=== PATIENT | male | born 1945 | race Caucasian/White ===

== ENCOUNTER 2024-05-20 12:44 | Emergency (ER) | payer MEDICARE ==
[~2024-05-20] VITALS: Ht 172.7 cm; Wt 88.5 kg
--- NOTE | 2024-05-20 12:54 | ERN ---
ED Note History of Present Illness Stated Complaint: FLU SYMPTOMS Chief Complaint: Cough Time Seen by MD: 12:46 Dictation: PATIENT IS A 78-YEAR-OLD MALE COMING IN TODAY WITH FLU-LIKE SYMPTOMS TO INCLUDE CLEAR RUNNY NOSE NONPRODUCTIVE COUGH AND BODY ACHES HE HAS HAD FOR 3-4 DAYS. NO NAUSEA VOMITING NO DIARRHEA NO LOSS OF TASTE OR SMELL. HE HAS NOT BEEN SEEN BY A PRIMARY CARE DOCTOR. SECOND COMPLAINT IS HE HAS RIGHT KNEE PAIN THAT HE HAS HAD FOR TWO WEEKS AFTER HE TWISTED IT WHILE HE WAS VISITING HIS DAUGHTER IN ANOTHER STATE AND WALKING OUT OF THE HOUSE. HE HAS A BRACE ON AT THE PRESENT TIME NO HISTORY OF PRIOR INJURIES OR FRACTURES OR SURGERIES TO THE SAME KNEE. PATIENT HAS FULL WEIGHT- BEARING Allergies: Coded Allergies: No Known Drug Allergies (Unverified Allergy, Unknown, 05/20/24) Past Medical History RN Note Reviewed/Agreed w/PFSH: Yes Review of System Dictation CONSTITUTIONAL: NEGATIVE EXCEPT FOR HPI HEAD/FACE: NEGATIVE EXCEPT FOR HPI EENT: NEGATIVE EXCEPT FOR HPI RESPIRATORY: NEGATIVE EXCEPT FOR HPI NONPRODUCTIVE COUGH GASTROINTESTINAL/ABDOMINAL: NEGATIVE EXCEPT FOR HPI GENITOURINARY: NEGATIVE EXCEPT FOR HPI MUSCULOSKELETAL: NEGATIVE EXCEPT FOR HPI RIGHT KNEE PAIN INTEGUMENTARY: NEGATIVE EXCEPT FOR HPI NEUROLOGICAL/PSYCH: NEGATIVE EXCEPT FOR HPI HEMATOLOGIC/LYMPHATIC: NEGATIVE EXCEPT FOR HPI ALL SYSTEMS NEGATIVE, EXCEPT NOTED ABOVE. 13 POINT REVIEW OF SYSTEMS ASSESSED AND ALL NEGATIVE EXCEPT FOR ABOVE. Initial Vital Sign VS Vital Signs Date Time Temp Pulse Resp B/P (MAP) Pulse Ox O2 Delivery O2 Flow Rate FiO2 05/20/24 12:49 97.9 75 16 139/83 95 Room Air Physical Exam Dictation VITAL SIGNS REVIEWED GENERAL APPEARANCE: ALERT, ORIENTED X 3, NO ACUTE DISTRESS, WELL DEVELOPED, NOURISHED. HEAD AND FACE: NON-TRAUMATIC. EYES: PERRL, PINK CONJUNCTIVAS, EYELID NO TRAUMA, ANTERIOR CHAMBER WITH ARCUS SENILIS. EARS: PINNAS INTACT AND NO SIGNS OF TRAUMA OR ERYTHEMA EAR CANALS CLEAR AND NO DISCHARGE TM NO ERYTHEMA NOSE: NO DISCHARGE, NO BLEEDING. OROPHARYNX: MOUTH NORMAL, TONGUE PINK, PHARYNX CLEAR,NO ERYTHEMA, TONSILS NO EXUDATES, NO ABSCESSES NOTED, MUCOUS MEMBRANE MOIST NECK: SUPPLE, NON-TENDER, NO THYROMEGALY, NO MASSES, NO JVD, NO BRUITS BREAST:DEFERRED CHEST:NO TENDERNESS, NO CREPITUS, NO PARADOXICAL MOVEMENT, NO RETRACTIONS LUNGS:CLEAR, WELL-VENTILATED, SYMMETRIC, NO RALES, NO WHEEZING, NO RHONCHI, NO STRIDOR, GOOD BREATH SOUNDS BILATERALLY HEART: REGULAR RATE, REGULAR RHYTHM, NO MURMUR, NO GALLOPS VASCULAR: NO PERIPHERAL EDEMA, ABDOMEN: SOFT, POSITIVE BOWEL SOUNDS, NONDISTENDED, NO GUARDING, NONTENDER, NO REBOUND, NO MASSES NO HEPATOMEGALY, NO SPLENOMEGALY, NO GRIFFIN'S SIGN, NO HERNIAS. RECTAL: DEFERRED GENITAL: DEFERRED NEUROLOGICAL: NORMAL SPEECH, MOTOR FUNCTION INTACT, SENSORY FUNCTION INTACT MUSCULOSKELETAL: NECK NONTENDER, FULL RANGE OF MOTION, BACK NONTENDER, FULL RANGE OF MOTION, EXTREMITIES: [id number] BRACE TO RIGHT KNEE NO CREPITATION FULL WEIGHT- BEARING WITH GAIT SKIN: COLOR PINK, DRY, NO TURGOR, NO RASH, NO LACERATIONS, NO ABRASIONS, NO CONTUSIONS. LYMPHATIC: DEFERRED Results (Laboratory/Radiology) Laboratory/Radiology Laboratory Tests Test 05/20/24 13:04 05/20/24 13:24 White Blood Count 7.6 K/uL (4.8-10.8) Red Blood Count 4.77 MIL/uL (4.50-6.20) Hemoglobin 14.4 g/dL (14.0-18.0) Hematocrit 44.2 % (42-54) Mean Corpuscular Volume 92.7 fL (79-99) Mean Corpuscular Hemoglobin 30.2 pg (27.0-33.0) Mean Corpuscular Hemoglobin Concent 32.6 g/dL (32.0-36.0) Red Cell Distribution Width 14.3 % (11.0-15.5) Platelet Count 120 K/uL (130-400) L Mean Platelet Volume 10.2 fL (7.5-10.5) Immature Granulocyte % (Auto) 0.3 % (0-1) Neutrophils (%) (Auto) 69.0 % (40.0-77.0) Lymphocytes (%) (Auto) 15.9 % (21.0-51.0) L Monocytes (%) (Auto) 11.1 % (3.0-13.0) Eosinophils (%) (Auto) 3.2 % (0.0-8.0) Basophils (%) (Auto) 0.5 % (0.0-5.0) Neutrophils # (Auto) 5.3 K/uL (1.8-7.7) Lymphocytes # (Auto) 1.2 K/uL (1.0-4.8) Monocytes # (Auto) 0.8 K/uL (0.1-1.0) Eosinophils # (Auto) 0.24 K/uL (0.00-0.70) Basophils # (Auto) 0.04 K/uL (0.00-0.20) Absolute Immature Granulocyte (auto 0.02 K/uL (0-1) Nucleated Red Blood Cells 0.0 % (0.0-0.19) Sodium Level 139 mmol/L (136-145) Potassium Level 3.5 mmol/L (3.5-5.1) Chloride Level 100 mmol/L (101-111) L Carbon Dioxide Level 35 mmol/L (21-32) H Blood Urea Nitrogen 22 mg/dL (7-18) H Creatinine 1.4 mg/dL (0.5-1.3) H Glomerular Filtration Rate Calc 51 mL/min (>90) Random Glucose 105 mg/dL (70-105) Total Calcium 8.7 mg/dL (8.5-10.1) Influenza Type A Antigen Negative For Type A Influenza Type B Antigen Negative For Type B SARS-CoV-2 Antigen (Rapid) PRESUMPTIVE NEGATIVE Group A Streptococcus Rapid negative (NEGATIVE) Signed PATIENT: SANDRA LOPES MR#: [id number] : 1945 SEX: M AGE: 78 LOCATION: [facility] ORDER [id number] STATUS: [facility] REPORT#: [id number] SERVICE 1251 REASON: SOB/NONPRODUCTIVE COUGH ORDERING PHYSICIAN: RANJAN ARCINIEGA NP PROCEDURE: CXR1VW - CHEST 1VW PORTABLE CHEST RADIOGRAPH INDICATION: SOB/NONPRODUCTIVE COUGH COMPARISON: None FINDINGS: Image is somewhat underexposed, but the radiologic examination is still believed to be of reasonable diagnostic quality. Left sided single chamber pacer and continuous lead remain in customary position. Heart is enlarged. The pulmonary vascularity and jodee appear normal. Right infrahilar and left lung base linear opacities without consolidation. No significant pleural effusion noted. No pneumothorax detected. IMPRESSION: Right infrahilar and left lung base atelectasis. Cardiomegaly without pulmonary vascular congestion. INDICATION: Right knee pain after twisting injury 2 weeks ago COMPARISON: None FINDINGS: AP, crosstable lateral, and oblique views. No acute fracture or dislocation identified. No significant joint effusion is present. Mild calcific plaque along the outflow and runoff arterial gong. IMPRESSION: No evidence for fracture or dislocation. Labs Reviewed?: Yes ED Course ED Course Orders Procedure Category Date Status Time Knee 3vws Rt RAD 05/20/24 Resulted 12:51 Chest 1vw RAD 05/20/24 Resulted 12:51 Covid19 (Sars Antigen LAB 05/20/24 Complete Rapid) 12:51 Cbc With Differential LAB 05/20/24 Complete 12:51 Basic Metabolic Panel LAB 05/20/24 Complete 12:51 Acetaminophen 500mg PHA 05/20/24 Complete Tab (Tylenol 500mg T 13:00 Rapid (Group A Strep) LAB 05/20/24 Complete 12:54 Influenza Type A & B, LAB 05/20/24 Complete Rapid 12:54 Current Medications Medications (Trade) Dose Ordered Sig/Olga Route PRN Reason Start Time Stop Time Status Last Admin Dose Admin Acetaminophen (TYLenol 500MG TAB) 1,000 mg ONCE ONCE PO 05/20/24 13:00 05/20/24 13:01 DC 05/20/24 14:03 Vital Signs Date Time Temp Pulse Resp B/P (MAP) Pulse Ox O2 Delivery O2 Flow Rate FiO2 05/20/24 14:03 99.0 05/20/24 12:49 97.9 75 16 139/83 95 Room Air FOURTEEN 40 PATIENT WILL BE TREATED FOR BACTERIAL BRONCHITIS WITH ZITHROMAX FOR THE NEXT FIVE DAYS. HE WILL BE GIVEN ALBUTEROL AND IBUPROFEN TOLD TO FOLLOW UP WITH DR. RADHA VIDAL FOR HIS KNEE Medical Decision Making MDM MDM: DIFFERENTIAL DIAGNOSIS: KNEE FRACTURE/CONTUSION/SPRAIN/SARS COVID/BRONC HITIS/PNEUMONIA RATIONALE: TESTS CONSIDERED AND ORDERED SECONDARY TO SHARED DECISION MAKING INCLUDE: RADIOLOGY/LABS PREVIOUS OUTSIDE RECORDS REVIEWED: OLD ER VISITS. RISK OF COMPLICATION AND/OR MORBIDITY OR MORTALITY OF PATIENT MANAGEMENT: NONE MEDICATIONS-PER MEDICATION RECONCILIATION NEED FOR HOSPITALIZATION: PATIENT DOES NOT MEET CRITERIA FOR HOSPITALIZATION. NO NEED FOR EMERGENCY MAJOR/MINOR SURGERY: NO THERE ARE NO SOCIAL CONCERNS WITH THIS PATIENT. PRESCRIPTION DRUG MANAGEMENT IBUPROFEN/ZITHROMAX/ALBUTEROL PRESCRIPTIONS WILL INCLUDE SYMPTOMATIC CARE PATIENT'S PRIOR EXTERNAL MEDICAL RECORDS FROM OTHER ER VISITS WERE REVIEWED BY ME INDICATED. PRIOR TESTING AND RESULTS FROM PREVIOUS VISITS WERE REVIEWED. PRIOR TESTS WERE TAKEN INTO ACCOUNT WITH MEDICAL DECISION MAKING AND RESOURCE UTILIZATION, INDEPENDENT HISTORIAN/HISTORIANS WERE USED TO OBTAIN COMPLETE MEDICAL HISTORY. I INDEPENDENTLY INTERPRETED THE TEST THAT WERE PERFORMED, RESULTS WERE REVIEWED BY ME AND CONSIDERED FINDINGS ON RADIOLOGY IF ORDERED. MEDICAL MANAGEMENT AND EXAMINATION INTERPRETATION DISCUSSIONS WERE HAD BY ME WITH OTHER QUALIFIED HEALTHCARE PROFESSIONALS INDICATED FOR THE PATIENT'S CARE. DX & DISP Disposition: Discharge Departure Impression: Primary Impression: Acute bacterial bronchitis Additional Impressions: Cough, Right knee sprain Condition: Stable Scripts Azithromycin (Zithromax Tri-Elan) 500 Mg Tablet 500 MG PO DAILY for 5 Days, #5 TAB Prov: RANJAN ARCINIEGA DRY MIXER 05/20/24 Albuterol Sulfate (Ventolin Hfa/Proventil Hfa/Proair Hfa) 90 Mcg Puff 2 PUFF IH Q4H for WHEEZING, #1 INHALER 0 Refills Prov: RANJAN ARCINIEGA DRY MIXER 05/20/24 Additional Instructions: FOLLOW-UP WITH PRIMARY CARE PROVIDER IN 1 TO 2 DAYS. TAKE MEDICATIONS DIRECTED HERE IN THE EMERGENCY ROOM. OKAY TO CONTINUE HOME MEDICATIONS UNLESS OTHERWISE DISCUSSED DURING YOUR VISIT IN THE EMERGENCY ROOM TODAY. RETURN TO YOUR NEAREST EMERGENCY ROOM IF SYMPTOMS WORSEN OR IF THERE IS NO IMPROVEMENT. CALL 911 IF YOU NEED IMMEDIATE ASSISTANCE. TAKE TYLENOL OR MOTRIN [id number] NEEDED AND IF NO CONTRAINDICATIONS ARE PRESENT. INCREASE ORAL HYDRATION. A WOUND CULTURE OR URINE CULTURE WAS ORDERED HERE IN THE EMERGENCY ROOM DEPARTMENT PLEASE FOLLOW-UP WITH PRIMARY CARE PROVIDER AND ADVISE THEM TO GET REPEAT PORTS FROM OUR FACILITY. IF YOU HAD ANY MACY WRAP/SPLINTS TH AT WERE APPLIED HERE, PLEASE DO NOT REMOVE THEM UNTIL YOU SEE YOUR PRIMARY CARE OR SPECIALTY. TAKE ANTIBIOTICS DIRECTED UNTIL GONE STARTING TOMORROW. USE ALBUTEROL INHALER EVERY4 HOURS WHILE AWAKE FOR THE NEXT TWO DAYS. ACTIVITY TOLERATED AND CALL DR. VIDAL FOR AN APPOINTMENT IN THE NEXT 1-2 DAYS Referrals: SELF,REFERRAL (PCP) RADHA VIDAL MD Time of Disposition: 14:41 I have reviewed the case, and I agree with, Diagnosis and Plan RANJAN ARCINIEGA NP May 20, 2024 12:54
[2024-05-20 13:17] LABS: BASOPHILS # (AUTO) 0.04 K/uL (0.00-0.20); BASOPHILS % (AUTO) 0.5 % (0.0-5.0); EOSINOPHILS # (AUTO) 0.24 K/uL (0.00-0.70); EOSINOPHILS % (AUTO) 3.2 % (0.0-8.0); HEMATOCRIT 44.2 % (42-54); IMMATURE GRANULOCYTE ABSOLUTE 0.02 K/uL (0-1); LYMPHOCYTES # (AUTO) 1.2 K/uL (1.0-4.8); LYMPHOCYTES % (AUTO) 15.9 % (21.0-51.0); MEAN CORPUSCULAR HEMOGLOBIN 30.2 pg (27.0-33.0); MEAN CORPUSCULAR HGB CONC 32.6 g/dL (32.0-36.0); MEAN CORPUSCULAR VOLUME 92.7 fL (79-99); MONOCYTES # (AUTO) 0.8 K/uL (0.1-1.0); MONOCYTES % (AUTO) 11.1 % (3.0-13.0); NEUTROPHILS # (AUTO) 5.3 K/uL (1.8-7.7); PLATELET COUNT (AUTO) 120 K/uL (130-400); RED BLOOD CELL COUNT(AUTO) 4.77 MIL/uL (4.50-6.20); RED CELL DISTRIBUTION WIDTH 14.3 % (11.0-15.5); WHITE BLOOD COUNT (AUTO) 7.6 K/uL (4.8-10.8)
[2024-05-20 13:26] LABS: CREATININE 1.4 mg/dL (0.5-1.3); POTASSIUM 3.5 mmol/L (3.5-5.1)
--- NOTE | 2024-05-20 13:37 | HMCIMG ---
PORTABLE CHEST RADIOGRAPH INDICATION: SOB/NONPRODUCTIVE COUGH COMPARISON: None FINDINGS: Image is somewhat underexposed, but the radiologic examination is still believed to be of reasonable diagnostic quality. Left sided single chamber pacer and continuous lead remain in customary position. Heart is enlarged. The pulmonary vascularity and jodee appear normal. Right infrahilar and left lung base linear opacities without consolidation. No significant pleural effusion noted. No pneumothorax detected. IMPRESSION: Right infrahilar and left lung base atelectasis. Cardiomegaly without pulmonary vascular congestion.
--- NOTE | 2024-05-20 13:37 | HMCIMG ---
RIGHT KNEE RADIOGRAPHS - 3 VIEWS INDICATION: Right knee pain after twisting injury 2 weeks ago COMPARISON: None FINDINGS: AP, crosstable lateral, and oblique views. No acute fracture or dislocation identified. No significant joint effusion is present. Mild calcific plaque along the outflow and runoff arterial gong. IMPRESSION: No evidence for fracture or dislocation.
[2024-05-20 13:44] LABS: RAPID GROUP A STREP negative (NEGATIVE)
[2024-05-20] MEDS: acetaMINOPHEN 500 MG TABLET PO ONE (14:03)
[2024-05-20 14:06] LABS: INFLUENZA TYPE A Negative For Type A (NEGATIVE); INFLUENZA TYPE B Negative For Type B (NEGATIVE)
[2024-05-20] MEDS ORDERED: ALBUHFA IH (14:44)
[2024-05-20] MEDS ORDERED: AZIT500T2 PO (14:44)
[2024-05-20] MEDS: AZITHROMYCIN 250 MG TABLET PO ONE (15:01)
[2024-05-20 15:03] VITALS: BP 131/79; PULSE 72; RESP 16; TEMP 98.7; O2SAT 96
[2024-05-20 15:06] VITALS: TEMP 98.7
== END 2024-05-20 15:06 | disposition home or self-care (01) ==
LOC: EDH 12:44
DX: S83.8X1A Sprain of other specified parts of right knee, initial encounter (principal); J20.8 Acute bronchitis due to other specified organisms; B96.89 Other specified bacterial agents as the cause of diseases classified elsewhere; Z20.822 Contact with and (suspected) exposure to COVID-19; X50.1XXA Overexertion from prolonged static or awkward postures, initial encounter; Y93.01 Activity, walking, marching and hiking; Y92.89 Other specified places as the place of occurrence of the external cause; Y99.8 Other external cause status
CPT/HCPCS: 36415; 71045; 73562; 80048; 85025; 87426; 87804; 87880; 99284